=== PATIENT | male | born 1950 | race African-American/Black ===

== ENCOUNTER 2017-05-16 07:06 | Emergency (ER) | payer MEDICARE, OTHER ==
[~2017-05-16] VITALS: Ht 177.8 cm; Wt 72.6 kg
[2017-05-16 07:06] VITALS: BP 0/0
[~2017-05-16 07:06] MED LIST: ASPIRIN EC81 MG ORAL; ASPIRIN325 MG ORAL; ATORVASTATIN CA20 MG ORAL; FLOMAX0.4 MG ORAL; LIPITOR20 MG ORAL; LISINOPRIL10 MG ORAL; LISINOPRIL5 MG ORAL; MIACALCIN1 SPRAYS NASAL; MIRALAX17 G2 ORAL; No home meds; OMEPRAZOLE10 M1 ORAL; UNOBMED
[2017-05-16 07:08] VITALS: BP 0/0
--- NOTE | 2017-05-16 07:21 | Emergency Room Report ---
History of Present Illness General Chief Complaint: Dyspnea/Respdistress Source: EMS Present Illness HPI Patient is a 67-year-old male brought in by EMS from sn[facility] after increased respiratory difficulty. The patient was noted to have a prior DO NOT RESUSCITATE order. Patient was noted to have become apneic and pulseless while in route with EMS. Patient was noted to be pronounced at 6:58 by EMS. The patient was brought to the emergency department subsequently. Allergies: Coded Allergies: No Known Allergies (Unverified , 01/14/13) Patient History Reviewed Nursing Documentation: PMH: Agreed, PSxH: Agreed Nursing Documentation-PMH Hx Cardiac Problems: Yes - 2 strokes last one in Jul 2015 Hx Hypertension: Yes - Hep C Hx Cerebrovascular Accident: Yes Hx Transient Ischemic Attacks: Yes Hx Speech Problem: Yes - delayed Hx Tremors: Yes Hx Dizziness: Yes Hx Numbness: Yes - hands and feet Hx Weakness: Yes Review of Systems All Other Systems: limited - Physical Exam Vital Signs Date Time Temp Pulse Resp B/P (MAP) Pulse Ox O2 Delivery O2 Flow Rate FiO2 05/16/17 07:08 0 0 0/0 0 Sp02 EP Interpretation: other General Appearance: Chronically Ill Respiratory: other - no respiratory effort Cardiovascular #1: other - absent cardiac activity Medical Decision Making Diagnostic Impression: Primary Impression: Cardiac arrest ER Course Patient presented hospital after respiratory and cardiac arrest. The patient was noted to have prior DO NOT RESUSCITATE paperwork. The patient was pronounced by EMS. Asystole was verified in 2 leads. Last Vital Signs Date Time Temp Pulse Resp B/P (MAP) Pulse Ox O2 Delivery O2 Flow Rate FiO2 05/16/17 07:08 0 0 0/0 0 Status: unchanged Disposition: Condition: Jose Olivares May 16, 2017 07:20
[2017-05-16] MEDS ORDERED: [UNRECOGNIZED DRUG - OTHER] NASAL (07:48)
[2017-05-16] MEDS ORDERED: LIPITOR20 MG ORAL (07:48)
[2017-05-16] MEDS ORDERED: MOBIC15 MG ORAL (07:48)
[2017-05-16] MEDS ORDERED: ACETAMINOPHEN325 M1 ORAL (07:48)
[2017-05-16] MEDS ORDERED: OMEPRAZOLE20 M2 ORAL (07:48)
[2017-05-16] MEDS ORDERED: MIRALAX17 G2 ORAL (07:48)
[2017-05-16] MEDS ORDERED: ARICEPT5 MG ORAL (07:48)
[2017-05-16] MEDS ORDERED: BACLOFEN10 MG ORAL (07:48)
[2017-05-16] MEDS ORDERED: TIMOPTIC 0.5%1 EACH OP (07:48)
== END 2017-05-16 08:00 | disposition expired ==
LOC: EDBD 07:06 → EDUNIT# 07:06 → EMR 07:10
DX: I46.9 Cardiac arrest, cause unspecified (principal); Z66 Do not resuscitate; I10 Essential (primary) hypertension; Z86.73 Personal history of transient ischemic attack (TIA), and cerebral infarction without residual deficits
CPT/HCPCS: 99282